=== PATIENT | male | born 1945 | race Caucasian/White ===

== ENCOUNTER → 2017-08-12 13:54 | Outpatient (CLI) | payer MEDICARE ==
[2017-08-12 15:07] LABS: CREATININE - SERUM 2.2 mg/dL (0.6-1.3)
== END | disposition home or self-care (01) ==
LOC: D.CT 13:54
PROVIDERS: Family Medicine
DX: R94.39 Abnormal result of other cardiovascular function study (principal)

== ENCOUNTER 2018-08-12 10:51 | Inpatient (IN) | payer OTHER, MEDICARE ==
[~2018-08-12] VITALS: Ht 180.3 cm; Wt 121.8 kg
[2018-08-12] MEDS ORDERED: ELIQUIS5 MG PO (10:59)
[2018-08-12] MEDS ORDERED: ALDACTONE25 MG PO (10:59)
[2018-08-12] MEDS ORDERED: BETAPACE 120 M120 MG PO (11:00)
[2018-08-12] MEDS ORDERED: COZAAR100 MG PO (11:00)
[2018-08-12] MEDS ORDERED: NORVASC10 MG PO (11:00)
[2018-08-12] MEDS ORDERED: CYMBALTA30 MG PO (11:01)
[2018-08-12] MEDS ORDERED: TORSEMIDE20 MG PO (11:02)
[2018-08-12] MEDS ORDERED: FERROUS SULFAT325 MG PO (11:02)
[2018-08-12] MEDS ORDERED: OMEPRAZOLE20 M1 PO (11:03)
[2018-08-12] MEDS ORDERED: TRICOR145 MG PO (11:03)
[2018-08-12] MEDS ORDERED: FOLIC ACID1 MG PO (11:03)
[2018-08-12] MEDS ORDERED: CRESTOR40 MG PO (11:03)
[2018-08-12] MEDS ORDERED: NEURONTIN 300300 MG PO (11:04)
[2018-08-12] MEDS ORDERED: ULTRAM50 MG PO (11:05)
[2018-08-12] MEDS ORDERED: ASCORBIC ACID500 MG PO (11:06)
[2018-08-12] MEDS ORDERED: FLUTICASONE PRO16 GM NASAL (11:06)
[2018-08-12] MEDS ORDERED: NOVOLOG100 UNIT/1 SC (11:07)
[2018-08-12] MEDS ORDERED: LANTUS INSULIN10 ML SC (11:07)
[2018-08-12] MEDS ORDERED: VITAMIN D250000 UNIT PO (11:08)
[2018-08-12 11:30] VITALS: BP 148/72
[2018-08-12 11:47] LABS: BASOPHILS 0.1 % (0-2); EOSINOPHILS 0.7 % (0-7); HEMATOCRIT 39.6 % (42.0-54.0); HEMOGLOBIN 14.2 g/dL (13.5-17.5); IMMATURE GRANULOCYTES 0.1 % (0-5); LYMPHOCYTES 24.3 % (15-50); MCH 32.3 pg (26.0-34.0); MCHC 35.9 g/dL (31.0-37.0); MEAN PLATELET VOLUME 10.5 fL (7.4-10.4); MONOCYTES 6.8 % (2-11); PLATELET COUNT 213 10x3/uL (130-400); RDW 12.5 % (11.5-14.5); WBC 6.8 10x3/uL (4.8-10.8)
[2018-08-12 12:04] LABS: ALBUMIN 3.8 g/dL (3.4-5.0); ANION GAP 11.7 mmol/L (8-16); BILIRUBIN - TOTAL 0.37 mg/dL (0.2-1.3); CALCIUM 9.5 mg/dL (8.5-10.1); CARBON DIOXIDE 28.1 mmol/L (21.0-32.0); CREATININE - SERUM 1.9 mg/dL (0.6-1.3); POTASSIUM - SERUM 4.8 mmol/L (3.5-5.1); PROTEIN - SERUM 7.1 g/dL (6.4-8.2)
[2018-08-12 12:35] VITALS: BP 150/75
[2018-08-12 13:31] VITALS: BP 177/80
[2018-08-12 13:40] LABS: INR 1.04 (0.85-1.17); PROTIME 13.1 SECONDS (11.6-15.0)
--- NOTE | 2018-08-12 16:04 | NUR ---
NEW PAGTIENT ADMIT FROM ER VIA STRETCHER AND HOSPITAL PERSONNEL. PATIENT ACCOMPANIED BY MULTIPLE FAMILY MEMBERS. PATIENT IS STABLE AND VSS. PATIENT DENIES ANY NEEDS OR PAIN. ADMISSION HISTORY AND ASSESSMENT COMPLETED. WILL CONTINUE WITH PLAN OF CARE. SR UP X 2 BED IN LOW POSTION AND CALL LIGHT IN REACH.
[2018-08-12 16:21] VITALS: BP 171/80; BMI 37.4
[2018-08-12 17:05] LABS: CHOL - HDL RATIO 5.3 ratio (2.3-4.9); LDL-HDL RATIO 2.4 ratio (1.5-3.5)
[2018-08-12 18:00] VITALS: BP 169/80
--- NOTE | 2018-08-12 18:20 | NUR ---
PATIENT LAYING IN BED SURROUNDED BY FAMILY MEMBERS. PATIENT IS STABLE AND VSS PATIENT DENIES ANY NEEDS OR PAIN. INFORMED PATIENT OF NEW NPO ORDER UNTIL CLEARED BY SPECCH. PATIENT AND VERBALIZED UNDERSTANDING. SIGN PLACED ON DOOR. WILL CONTINUE TO MONITOR.
[2018-08-12 20:00] VITALS: BP 175/73
[2018-08-13] VITALS: BP 160/62
[2018-08-13 04:00] VITALS: BP 162/76
[2018-08-13 05:04] LABS: BASOPHILS 0.2 % (0-2); EOSINOPHILS 1.2 % (0-7); HEMATOCRIT 37.5 % (42.0-54.0); HEMOGLOBIN 13.3 g/dL (13.5-17.5); IMMATURE GRANULOCYTES 0.2 % (0-5); LYMPHOCYTES 28.6 % (15-50); MCH 32.2 pg (26.0-34.0); MCHC 35.5 g/dL (31.0-37.0); MCV 90.8 fL (80.0-100.0); MEAN PLATELET VOLUME 10.3 fL (7.4-10.4); MONOCYTES 9.4 % (2-11); NEUTROPHILS 60.4 % (40-80); PLATELET COUNT 180 10x3/uL (130-400); RBC 4.13 10x6/uL (4.20-6.10); RDW 12.4 % (11.5-14.5); WBC 6.5 10x3/uL (4.8-10.8)
[2018-08-13 05:18] LABS: ANION GAP 11.9 mmol/L (8-16); CARBON DIOXIDE 27.4 mmol/L (21.0-32.0); CREATININE - SERUM 1.7 mg/dL (0.6-1.3); POTASSIUM - SERUM 4.3 mmol/L (3.5-5.1)
--- NOTE | 2018-08-13 07:10 | NUR ---
REPORT RECEIVED FROM DIALYSIS RN AND PATIENT CARE ASSUMED. PATIENT LAYING IN BED ON BACK WITH EYES CLOSED AND BREATHING EVENLY. VSS AND PATEINT IS STABLE. PATIENT REMAINS NPO PENDING SPEECH EVAL. WILL CONTINUE WITH PLAN OF CARE. SR UP X 2 BED IN LOW POSTITION AND CALL LIGHT IN REACH.
[2018-08-13 08:34] LABS: APPEARANCE CLEAR (CLEAR); COLOR YELLOW (YELLOW); GLUCOSE 1000 mg/dL (NEGATIVE); KETONE NEGATIVE (NEGATIVE); NITRITE NEGATIVE (NEGATIVE); PROTEIN 2+ mg/dL (NEGATIVE); SPECIFIC GRAVITY 1.015 (1.005-1.020)
[2018-08-13 08:35] LABS: BACTERIA FEW /hpf (NONE SEEN); BILIRUBIN NEGATIVE (NEGATIVE); EPITHELIAL CELLS OCC /hpf (0-5); MUCUS <1+ /lpf (NONE SEEN); RED CELLS - URINE 0-5 /hpf (0-5); UROBILINOGEN NORMAL (NORMAL); WHITE CELLS - URINE RARE /hpf (0-5)
[2018-08-13 08:37] LABS: GRANULAR CAST OCC /lpf (NONE SEEN); HYALINE CAST RARE /lpf (NONE SEEN)
--- NOTE | 2018-08-13 08:53 | MORECARE ---
CASE MANAGEMENT DISCHARGE SUMMARY PATIENT: CHOLO BARRAZA UNIT: [id number] ADM DATE: 08/13/18 AGE: 73 : 46 SEX: M ROOM/BED: D.2103 AUTHOR: DIAZ ZAVALA PHYSICIAN: REFERRING PHYSICIAN: WENDY BOSE MD DATE OF SERVICE: 08/13/18 Discharge Plan Patient Name: CHOLO BARRAZA Facility: [facility]:[place] : 1945 Planned Disposition: [place] facility Anticipated Discharge Date: Discharge Date: Expected LOS: Initial Reviewer: [email or web address] Initial Review Date: 08/12/2018 Generated: 08/13/18 9:52 am Patient Name: CHOLO BARRAZA Page 77944 at 0853 All edits/amendments must be made on the electronic document DICTATION DATE: 08/13/1852 DREDGE LEVER OPERATOR: LORENZA 08/13/18 0852 RPT#: [id number] DC DATE: STATUS: ADM IN [facility] [address] [place] [address] END OF REPORT
--- NOTE | 2018-08-13 08:59 | MORECARE ---
CASE MANAGEMENT DISCHARGE SUMMARY PATIENT: CHOLO BARRAZA UNIT: [id number] ADM DATE: 08/13/18 AGE: 73 : 46 SEX: M ROOM/BED: D.2103 AUTHOR: DIAZ ZAVALA PHYSICIAN: REFERRING PHYSICIAN: WENDY BOSE MD DATE OF SERVICE: 08/13/18 Discharge Plan Patient Name: CHOLO BARRAZA Facility: [facility]:[place] : 1945 Planned Disposition: [place] facility Anticipated Discharge Date: Discharge Date: Expected LOS: Initial Reviewer: [email or web address] Initial Review Date: 08/12/2018 Generated: 08/13/18 9:59 am DCPIA - Discharge Planning Initial Assessment Updated by [email or web address]: Jarad Ceron on 08/13/18 8:54 am * Is the patient Alert and Oriented? Yes * How many steps to enter\exit or inside your home? * PCP DR. OBRIEN * Pharmacy [place] [facility] * Preadmission Environment Home with Family * ADLs Independent * Equipment Rolling Walker * Other Equipment WALKER WITH SEAT PROVIDER- [employer] * List name and contact numbers for known caregivers / representatives who currently or will assist patient after discharge: CHER BARRAZA, SPOUSE, * Verbal permission to speak to the caregivers and representatives has been obtained from the patient. N/A * Community resources currently utilized None * Please name any agencies selected above. NONE * Additional services required to return to the preadmission environment? No * Can the patient safely return to the preadmission environment? Yes * Has this patient been hospitalized within the prior 30 days at any hospital? No Last DP export: 08/13/18 7:52 am Patient Name: CHOLO BARRAZA Page 38093 at 0859 All edits/amendments must be made on the electronic document DICTATION DATE: 08/13/18857 RUSTIC FENCE BUILDER: LORENZA 08/13/1858 RPT#: [id number] DC DATE: STATUS: ADM IN [facility] [address] [place] [address] END OF REPORT
--- NOTE | 2018-08-13 09:00 | NUR ---
PATIENT SITTING UP IN BS CHAIR AWAKE, ALERT AND ORIENTED X 4. PATIENT DNIES ANY NEEDS OR PAIN. SPEECH THERAPY AT BS. CALL LIGHT IN REACH.
--- NOTE | 2018-08-13 09:06 | MORECARE ---
CASE MANAGEMENT DISCHARGE SUMMARY PATIENT: CHOLO BARRAZA UNIT: [id number] ADM DATE: 08/13/18 AGE: 73 : 46 SEX: M ROOM/BED: D.2103 AUTHOR: DIAZ ZAVALA PHYSICIAN: REFERRING PHYSICIAN: WENDY BOSE MD DATE OF SERVICE: 08/13/18 Discharge Plan Patient Name: CHOLO BARRAZA Facility: [facility]:[place] : 1945 Planned Disposition: VA facility Anticipated Discharge Date: Discharge Date: Expected LOS: Initial Reviewer: [email or web address] Initial Review Date: 08/12/2018 Generated: 08/13/18 10:05 am Comments DCP- Discharge Planning Updated by [email or web address]: Jarad Ceron on 08/13/18 8:[address] Patient Name: CHOLO BARRAZA Admission Status: ER Accout number: [id number] Admission Date: 08-13-2018 : 1945 Admission Diagnosis: Attending: WENDY BOSE Current LOS: 1 Anticipated DC Date: Planned Disposition: [place] facility Primary Insurance: [facility] PLANNED EXTERNAL PROVIDER: [facility] Discharge Planning Comments: CM MET WITH PT IN ROOM TO DISCUSS DISCHARGE PLANNING AND NEEDS. PT REPORTS LIVING AT HOME INDEPENDENTLY WITH SPOUSE. PT HAS WALKER WITH SEAT FROM THE [facility]. PT HAS NO OUTSIDE SERVICES ASSISTING IN THE HOME. CM DISCUSSED AVAILABILITY OF HOME HEALTH, REHAB SERVICES AND MEDICAL EQUIPMENT. PT STATES IF HE NEEDS REHAB, HE WANTS REHAB AT [facility] HE ALREADY GOES THERE. PT PLANS TO DISCHARGE HOME IF NOT TRANSFERRED TO THE [facility] [place]. PT STATES THE NURSE IN THE ER WAS SUPPOSED TO CALL LAST NIGHT. PT REPORTS HIS WILL PICK HIM UP FOR DISCHARGE HOME. PT DOES WANT TO TRANSFER TO THE [place] HOSPITAL. CM CALLED [facility], , SPOKE TO [place] EXPEDITOR MELODY WHO INFORMED CM THAT NO PRIOR CALL HAD BEEN RECEIVED REGARDING PT'S ADMISSION TO THE HOSPITAL. CM PLACED PT ON THE [place] TRANSFER LIST. PT IS ON THE [place] TRANSFER LIST. PT STATES THAT IF HE COMPLETES TREATMENT HERE WITHOUT A VA BED COMING AVAILABLE, PT WANTS TO DISCHARGE HOME WITH SPOUSE AND OUTPATIENT REHAB AT [facility]. CM TO CONTINUE TO FOLLOW AND ASSIST NEEDED. Personnel Records Clerk: Jarad Ceron DCPIA - Discharge Planning Initial Assessment Updated by [email or web address]: Jarad Ceron on 08/13/18 8:54 am * Is the patient Alert and Oriented? Yes * How many steps to enter\exit or inside your home? * PCP DR. OBRIEN * [facility]acy [place] [facility] * Preadmission Environment Home with Family * ADLs Independent * Equipment Rolling Walker * Other Equipment WALKER WITH SEAT PROVIDER- [employer] * List name and contact numbers for known caregivers / representatives who currently or will assist patient after discharge: CHER BARRAZA, SPOUSE, * Verbal permission to speak to the caregivers and representatives has been obtained from the patient. N/A * Community resources currently utilized None * Please name any agencies selected above. NONE * Additional services required to return to the preadmission environment? No * Can the patient safely return to the preadmission environment? Yes * Has this patient been hospitalized within the prior 30 days at any hospital? No Last DP export: 08/13/18 7:59 am Patient Name: CHOLO BARRAZA Page 52591 at 0906 All edits/amendments must be made on the electronic document DICTATION DATE: 08/13/18904 ADMISSIONS RN: LORENZA 08/13/18904 RPT#: [id number] DC DATE: STATUS: ADM IN [facility] [address] [place] [address] END OF REPORT
[2018-08-13 09:18] VITALS: BP 175/72
[2018-08-13 09:33] VITALS: Ht 180.3 cm; Wt 121.8 kg
--- NOTE | 2018-08-13 13:00 | NUR ---
PATIENT IS SITTING UP IN BED WATCHING TV AND VISITING WITH FAMILY. PATIENT IS STABLE AND VSS. PATIENT DENIES ANY NEEDS OR PAIN. WILL CONTINUE TO MONITOR.
[2018-08-13 13:12] VITALS: BP 166/74
[2018-08-13 17:11] VITALS: BP 162/79
--- NOTE | 2018-08-13 17:37 | NUR ---
PATIENT IS STABLE AND UNCHANGED.
--- NOTE | 2018-08-13 17:49 | MORECARE ---
CASE MANAGEMENT DISCHARGE SUMMARY PATIENT: CHOLO BARRAZA UNIT: [id number] ADM DATE: 08/13/18 AGE: 73 : 46 SEX: M ROOM/BED: D.2103 AUTHOR: DIAZ ZAVALA PHYSICIAN: REFERRING PHYSICIAN: WENDY BOSE MD DATE OF SERVICE: 08/13/18 Discharge Plan Patient Name: CHOLO BARRAZA Facility: [facility]:[place] : 1945 Planned Disposition: Home with Home Health Anticipated Discharge Date: Discharge Date: Expected LOS: Initial Reviewer: [email or web address] Initial Review Date: 08/12/2018 Generated: 08/13/18 6:49 pm Comments DCP- Discharge Planning Updated by [email or web address]: Jarad Ceron on 08/13/18 4:[address] Patient Name: CHOLO BARRAZA Encounter No: [id number] : 1945 Primary Insurance: [employer] Anticipated DC Date: Planned Disposition: Home with Home Health External Planned Provider: [facility] DCP follow-up note: CM RECEIVED ORDER FOR INPATIENT REHAB PRESCREENING. CM MET WITH PT AND SPOUSE IN ROOM. PT PROVIDED PERMISSION TO DISCUSS CARE AND DISCHARGE PLANNING WITH SPOUSE. CM DISCUSSED REHAB OPTIONS, PROVIDERS AND LOCATIONS. PT DOES NOT WANT TO STAY FOR REHAB AT [facility]. PT DOES NOT WANT TRANSFERRED TO [place] INPATIENT REHAB OR CUSTODIAL REHAB. PT REQUESTS FOR [place] HOME HEALTH AND VA PERSONAL CARE BE ARRANGED FOR HIM TO DISCHARGE HOME. CM EXPLAINED PROCESS AND INFORMED PT AND SPOUSE THE REQUESTED ARRANGEMENT WILL TAKE AND UNDETERMINED AMOUNT OF TIME AND THE [facility] MAY OR MAY NOT AGREE WITH THE NEEDS AND MAY OR MAY NOT ARRANGE THE SERVICES. CM FURTHER EXPLAINED THAT CM MAY REQUEST THE SERVICES FROM THE [facility], BUT THAT CM DOES NOT HAVE CONTROL OVER WHAT THE [facility] ADMINISTRATION WILL OR WILL NOT PROVIDE. PT AND SPOUSE REPORT UNDERSTANDING. PT AND SPOUSE EXPECT THAT HE WILL REMAIN IN THE HOSPITAL UNTIL THE VA MAKES ARRANGEMENTS FOR PT'S DISCHARGE HOME. CM TO CONTACT [facility] AND REQUEST HOME HEALTH AND HOME PERSONAL CARE FROM THE [place] FOR PT TO DISCHARGE HOME. ABEL Chiang DCP- Discharge Planning Updated by [email or web address]: Jarad Ceron on 08/13/18 8:[address] Patient Name: CHOLO BARRAZA Admission Status: ER Accout number: [id number] Admission Date: 08-13-2018 : 1945 Admission Diagnosis: Attending: WENDY BOSE Current LOS: 1 Anticipated DC Date: Planned Disposition: [place] facility Primary Insurance: [facility] PLANNED EXTERNAL PROVIDER: [facility] Discharge Planning Comments: CM MET WITH PT IN ROOM TO DISCUSS DISCHARGE PLANNING AND NEEDS. PT REPORTS LIVING AT HOME INDEPENDENTLY WITH SPOUSE. PT HAS WALKER WITH SEAT FROM THE [facility]. PT HAS NO OUTSIDE SERVICES ASSISTING IN THE HOME. CM DISCUSSED AVAILABILITY OF HOME HEALTH, REHAB SERVICES AND MEDICAL EQUIPMENT. PT STATES IF HE NEEDS REHAB, HE WANTS REHAB AT [facility] HE ALREADY GOES THERE. PT PLANS TO DISCHARGE HOME IF NOT TRANSFERRED TO THE [facility] IN [place]. PT STATES THE NURSE IN THE ER WAS SUPPOSED TO CALL LAST NIGHT. PT REPORTS HIS WILL PICK HIM UP FOR DISCHARGE HOME. PT DOES WANT TO TRANSFER TO THE [place] HOSPITAL. CM CALLED [facility], , SPOKE TO [place] EXPEDITOR MELODY WHO INFORMED CM THAT NO PRIOR CALL HAD BEEN RECEIVED REGARDING PT'S ADMISSION TO THE HOSPITAL. CM PLACED PT ON THE [place] TRANSFER LIST. PT IS ON THE [place] TRANSFER LIST. PT STATES THAT IF HE COMPLETES TREATMENT HERE WITHOUT A [place] BED COMING AVAILABLE, PT WANTS TO DISCHARGE HOME WITH SPOUSE AND OUTPATIENT REHAB AT [facility]. CM TO CONTINUE TO FOLLOW AND ASSIST NEEDED. Credit Collection Specialist: Jarad Ceron DCPIA - Discharge Planning Initial Assessment Updated by [email or web address]: Jarad Ceron on 08/13/18 8:54 am * Is the patient Alert and Oriented? Yes * How many steps to enter\exit or inside your home? * PCP DR. OBRIEN * Pharmacy [place] [facility] * Preadmission Environment Home with Family * ADLs Independent * Equipment Rolling Walker * Other Equipment WALKER WITH SEAT PROVIDER- [facility] * List name and contact numbers for known caregivers / representatives who currently or will assist patient after discharge: CHER BARRAZA, SPOUSE, * Verbal permission to speak to the caregivers and representatives has been obtained from the patient. N/A * Community resources currently utilized None * Please name any agencies selected above. NONE * Additional services required to return to the preadmission environment? No * Can the patient safely return to the preadmission environment? Yes * Has this patient been hospitalized within the prior 30 days at any hospital? No Last DP export: 08/13/18 8:05 am Patient Name: CHOLO BARRAZA Page 02003 at 1742 All edits/amendments must be made on the electronic document DICTATION DATE: 08/13/181747 HOME SERVICE CONSULTANT: LORENZA 08/13/181747 RPT#: [id number] DC DATE: STATUS: ADM IN [facility] [address] [place] [address] END OF REPORT
--- NOTE | 2018-08-13 20:00 | NUR ---
ALERT AND ORIENTIATED RESTING IN BED, SLIGHT RIGHT SIDED FACIAL DROOPING NOTED ALSO RIGHT HAND EQUIPMENT SALES SPECIALIST SLIGHTLY WEAKER THAN LEFT AND RIGHT LEG SLIGHTLY WEAKER SHYANNE RIGHT, SEE SHIFT ASSESSMENT, DENIES PAIN OR NEEDS, CALL LIGHT IN REACH
[2018-08-13 20:22] VITALS: BP 144/60
--- NOTE | 2018-08-13 21:19 | NUR ---
Rehab Note- Acute Inpatient Rehab prescreen order received. The patient has VA Benefits with secondary insurance of [employer]. The patient wishs to continue his VA benefits at this time and discharge home per speaking with MIGEL Obrien. Thank you for this referral! Jesica Hensley RN Clinical Liaison, [facility]
--- NOTE | 2018-08-13 22:45 | NUR ---
OT NOTE: PT COMPLETED BED MOB WITH MIN A. PT COMPLETED EOB SITTING BALANCE AXS TO INCREASE CORE STRENGTH. PT COMPLETED SIT TO STANDS WITH MIN A/CGA. PT COMPLETED BUE AROM EXS. THANK YOU, SHIVA LANCASTER
[2018-08-14 00:06] VITALS: BP 145/64
[2018-08-14 04:27] VITALS: BP 131/65
[2018-08-14 05:02] LABS: BASOPHILS 0.1 % (0-2); EOSINOPHILS 0.9 % (0-7); HEMATOCRIT 39.1 % (42.0-54.0); HEMOGLOBIN 13.9 g/dL (13.5-17.5); IMMATURE GRANULOCYTES 0.3 % (0-5); LYMPHOCYTES 21.2 % (15-50); MCHC 35.5 g/dL (31.0-37.0); MCV 89.9 fL (80.0-100.0); MEAN PLATELET VOLUME 10.5 fL (7.4-10.4); MONOCYTES 8.8 % (2-11); NEUTROPHILS 68.7 % (40-80); RBC 4.35 10x6/uL (4.20-6.10); RDW 12.2 % (11.5-14.5); WBC 7.7 10x3/uL (4.8-10.8)
[2018-08-14 05:04] LABS: PLATELET COUNT 224 10x3/uL (130-400)
[2018-08-14 05:21] LABS: ANION GAP 13.3 mmol/L (8-16); CALCIUM 9.1 mg/dL (8.5-10.1); CARBON DIOXIDE 25.1 mmol/L (21.0-32.0); CREATININE - SERUM 1.5 mg/dL (0.6-1.3); POTASSIUM - SERUM 4.4 mmol/L (3.5-5.1)
[2018-08-14 07:41] VITALS: BP 168/72
--- NOTE | 2018-08-14 07:45 | NUR ---
A/A/OX4. DENIES ANY PAIN OR DISCOMFORT AND NO REQUESTS VOICED. SOME SLIGHT RIGHT SIDED WEAKNESS NOTED ON NEURO CHECK. ASSESSMENT COMPLETED AND WILL CONTINUE POC.
[2018-08-14 12:03] VITALS: BP 162/78
--- NOTE | 2018-08-14 13:25 | NUR ---
I have reviewed this patient and I concur with the Shift Assessment completed by the Licensed Practical Nurse today this shift.
--- NOTE | 2018-08-14 14:24 | MORECARE ---
CASE MANAGEMENT DISCHARGE SUMMARY PATIENT: CHOLO BARRAZA UNIT: [id number] ADM DATE: 08/13/18 AGE: 73 : 46 SEX: M ROOM/BED: D.2103 AUTHOR: DIAZ ZAVALA PHYSICIAN: REFERRING PHYSICIAN: WENDY BOSE MD DATE OF SERVICE: 08/14/18 Discharge Plan Patient Name: CHOLO BARRAZA Facility: [facility]:[place] : 1945 Planned Disposition: Home with Home Health Anticipated Discharge Date: Discharge Date: Expected LOS: Initial Reviewer: [email or web address] Initial Review Date: 08/12/2018 Generated: 08/14/18 3:24 pm Comments DCP- Discharge Planning Updated by [email or web address]: Sol Benavidez on 08/14/18 1:[address] Patient Name: CHOLO BARRAZA Admission Status: ER Accout number: [id number] Admission Date: 08-13-2018 : 1945 Admission Diagnosis:CEREBRAL INFARCTION, UNSPECIFIED Attending: WENDY BOSE Current LOS: 1 Anticipated DC Date: Planned Disposition: Home with Home Health Primary Insurance: [facility] Discharge Planning Comments: SPOKE TO PT AND ABOUT HH AND THAT VA COULD TAKE WEEKS TO GET IN. PT DECIDED TO GO WITH [facility]. LASHAY SIGNED AT 1350. PT HAS WALKER AT HOME AND DENIES ANY OTHER NEEDS. PT STATES HOME IS A SAFE DC PLAN. CM FAXED AND CALLED HH WITH NEW ADMIT INFORMATION. IMM SIGNED AT 1350 Chef Kitchen Manager: Sol Benavidez DCP- Discharge Planning Updated by [email or web address]: Jarad Ceron on 08/13/18 4:[address] Patient Name: CHOLO BARRAZA Encounter No: [id number] : 1945 Primary Insurance: [facility] [employer] Anticipated DC Date: Planned Disposition: Home with Home Health External Planned Provider: [facility] DCP follow-up note: CM RECEIVED ORDER FOR INPATIENT REHAB PRESCREENING. CM MET WITH PT AND SPOUSE IN ROOM. PT PROVIDED PERMISSION TO DISCUSS CARE AND DISCHARGE PLANNING WITH SPOUSE. CM DISCUSSED REHAB OPTIONS, PROVIDERS AND LOCATIONS. PT DOES NOT WANT TO STAY FOR REHAB AT [facility]. PT DOES NOT WANT TRANSFERRED TO [facility] INPATIENT REHAB OR NURSING HOME REHAB. PT REQUESTS FOR [place] HOME HEALTH AND VA PERSONAL CARE BE ARRANGED FOR HIM TO DISCHARGE HOME. CM EXPLAINED PROCESS AND INFORMED PT AND SPOUSE THE REQUESTED ARRANGEMENT WILL TAKE AND UNDETERMINED AMOUNT OF TIME AND THE [facility] MAY OR MAY NOT AGREE WITH THE NEEDS AND MAY OR MAY NOT ARRANGE THE SERVICES. CM FURTHER EXPLAINED THAT CM MAY REQUEST THE SERVICES FROM THE [facility], BUT THAT CM DOES NOT HAVE CONTROL OVER WHAT THE [facility] ADMINISTRATION WILL OR WILL NOT PROVIDE. PT AND SPOUSE REPORT UNDERSTANDING. PT AND SPOUSE EXPECT THAT HE WILL REMAIN IN THE HOSPITAL UNTIL THE [place] MAKES ARRANGEMENTS FOR PT'S DISCHARGE HOME. CM TO CONTACT [facility] AND REQUEST HOME HEALTH AND HOME PERSONAL CARE FROM THE [place] FOR PT TO DISCHARGE HOME. Jarad Ceron, CASE MANAGEMENT DCP- Discharge Planning Updated by [email or web address]: Jarad Ceron on 08/13/18 8:[address] Patient Name: CHOLO BARRAZA Admission Status: ER Accout number: [id number] Admission Date: 08-13-2018 : 1945 Admission Diagnosis: Attending: WENDY BOSE Current LOS: 1 Anticipated DC Date: Planned Disposition: [place] facility Primary Insurance: [facility] PLANNED EXTERNAL PROVIDER: [facility] Discharge Planning Comments: CM MET WITH PT IN ROOM TO DISCUSS DISCHARGE PLANNING AND NEEDS. PT REPORTS LIVING AT HOME INDEPENDENTLY WITH SPOUSE. PT HAS WALKER WITH SEAT FROM THE [facility]. PT HAS NO OUTSIDE SERVICES ASSISTING IN THE HOME. CM DISCUSSED AVAILABILITY OF HOME HEALTH, REHAB SERVICES AND MEDICAL EQUIPMENT. PT STATES IF HE NEEDS REHAB, HE WANTS REHAB AT [facility] HE ALREADY GOES THERE. PT PLANS TO DISCHARGE HOME IF NOT TRANSFERRED TO THE [facility] IN [place]. PT STATES THE NURSE IN THE ER WAS SUPPOSED TO CALL LAST NIGHT. PT REPORTS HIS WILL PICK HIM UP FOR DISCHARGE HOME. PT DOES WANT TO TRANSFER TO THE [facility] HOSPITAL. CM CALLED [facility], , SPOKE TO [place] EXPEDITOR MELODY WHO INFORMED CM THAT NO PRIOR CALL HAD BEEN RECEIVED REGARDING PT'S ADMISSION TO THE HOSPITAL. CM PLACED PT ON THE [place] TRANSFER LIST. PT IS ON THE [place] TRANSFER LIST. PT STATES THAT IF HE COMPLETES TREATMENT HERE WITHOUT A VA BED COMING AVAILABLE, PT WANTS TO DISCHARGE HOME WITH SPOUSE AND OUTPATIENT REHAB AT [facility]. CM TO CONTINUE TO FOLLOW AND ASSIST NEEDED. Chef Kitchen Manager: Jarad Ceron DCPIA - Discharge Planning Initial Assessment Updated by [email or web address]: Jarad Ceron on 08/13/18 8:54 am * Is the patient Alert and Oriented? Yes * How many steps to enter\exit or inside your home? * PCP DR. OBRIEN * Pharmacy [place] [facility] * Preadmission Environment Home with Family * ADLs Independent * Equipment Rolling Walker * Other Equipment WALKER WITH SEAT PROVIDER- [employer] * List name and contact numbers for known caregivers / representatives who currently or will assist patient after discharge: CHER BARRAZA, SPOUSE, * Verbal permission to speak to the caregivers and representatives has been obtained from the patient. N/A * Community resources currently utilized None * Please name any agencies selected above. NONE * Additional services required to return to the preadmission environment? No * Can the patient safely return to the preadmission environment? Yes * Has this patient been hospitalized within the prior 30 days at any hospital? No Last DP export: 08/13/18 4:49 pm Patient Name: CHOLO BARRAZA Page 19294 at 1424 All edits/amendments must be made on the electronic document DICTATION DATE: 08/14/181422 SURVEYOR ROD HELPER: LORENZA 08/14/181422 RPT#: [id number] DC DATE: STATUS: ADM IN [facility] [address] [place] [address] END OF REPORT
--- NOTE | 2018-08-14 15:33 | NUR ---
DISCHARGE INSTRUCTIONS REVIEWED WITH PT AND HIS . VERBALIZES UNDERSTANDING AND HAS NOT QUESTIONS. IV DC'D WITH CATH TIP INTACT. SALES SPECIAL AGENT REMOVED.
--- NOTE | 2018-08-14 16:03 | NUR ---
LEFT FLOOR VIA W/C WITH ALL PERSONAL BELONGINGS AND LEFT FACILITY VIA PRIVATE VEHICLE WITH HIS .
--- NOTE | 2018-08-14 19:34 | MORECARE ---
CASE MANAGEMENT DISCHARGE SUMMARY PATIENT: CHOLO BARRAZA UNIT: [id number] ADM DATE: 08/13/18 AGE: 73 : 46 SEX: M ROOM/BED: D.2103 AUTHOR: DIAZ ZAVALA PHYSICIAN: REFERRING PHYSICIAN: WENDY BOSE MD DATE OF SERVICE: 08/14/18 Discharge Plan Patient Name: CHOLO BARRAZA Facility: [facility]:[place] : 1945 Planned Disposition: Home with Home Health Anticipated Discharge Date: Discharge Date: 08/14/2018 Expected LOS: Initial Reviewer: [id number] Initial Review Date: 08/12/2018 Generated: 08/14/18 8:34 pm Comments DCP- Discharge Planning Updated by [email or web address]: Sol Benavidez on 08/14/18 1:[address] Patient Name: CHOLO BARRAZA Admission Status: ER Accout number: [id number] Admission Date: 08-13-2018 : 1945 Admission Diagnosis:CEREBRAL INFARCTION, UNSPECIFIED Attending: WENDY BOSE Current LOS: 1 Anticipated DC Date: Planned Disposition: Home with Home Health Primary Insurance: [facility] [employer] Discharge Planning Comments: SPOKE TO PT AND ABOUT HH AND THAT MA COULD TAKE WEEKS TO GET IN. PT DECIDED TO GO WITH [facility] . LASHAY SIGNED AT 1350. PT HAS WALKER AT HOME AND DENIES ANY OTHER NEEDS. PT STATES HOME IS A SAFE DC PLAN. CM FAXED AND CALLED HH WITH NEW ADMIT INFORMATION. IMM SIGNED AT 1350 Flag Signalman: Sol Benavidez DCP- Discharge Planning Updated by [id number]: Jarad Ceron on 08/13/18 4:[address] Patient Name: CHOLO BARRAZA Encounter No: [id number] : 1945 Primary Insurance: [facility] Anticipated DC Date: Planned Disposition: Home with Home Health External Planned Provider: [facility] DCP follow-up note: CM RECEIVED ORDER FOR INPATIENT REHAB PRESCREENING. CM MET WITH PT AND SPOUSE IN ROOM. PT PROVIDED PERMISSION TO DISCUSS CARE AND DISCHARGE PLANNING WITH SPOUSE. CM DISCUSSED REHAB OPTIONS, PROVIDERS AND LOCATIONS. PT DOES NOT WANT TO STAY FOR REHAB AT [facility]. PT DOES NOT WANT TRANSFERRED TO [facility] OR [facility]. PT REQUESTS FOR [facility] HOME HEALTH AND [facility] PERSONAL CARE BE ARRANGED FOR HIM TO DISCHARGE HOME. CM EXPLAINED PROCESS AND INFORMED PT AND SPOUSE THE REQUESTED ARRANGEMENT WILL TAKE AND UNDETERMINED AMOUNT OF TIME AND THE [facility] MAY OR MAY NOT AGREE WITH THE NEEDS AND MAY OR MAY NOT ARRANGE THE SERVICES. CM FURTHER EXPLAINED THAT CM MAY REQUEST THE SERVICES FROM THE [facility], BUT THAT CM DOES NOT HAVE CONTROL OVER WHAT THE [facility] WILL OR WILL NOT PROVIDE. PT AND SPOUSE REPORT UNDERSTANDING. PT AND SPOUSE EXPECT THAT HE WILL REMAIN IN THE HOSPITAL UNTIL THE [facility] MAKES ARRANGEMENTS FOR PT'S DISCHARGE HOME. CM TO CONTACT [facility] AND REQUEST HOME HEALTH AND HOME PERSONAL CARE FROM THE [facility] FOR PT TO DISCHARGE HOME. Jarad Ceron, CASE MANAGEMENT DCP- Discharge Planning Updated by [email or web address]: Jarad Ceron on 08/13/18 8:[address] Patient Name: CHOLO BARRAZA Admission Status: ER Accout number: [id number] Admission Date: 08-13-2018 : 1945 Admission Diagnosis: Attending: WENDY BOSE Current LOS: 1 Anticipated DC Date: Planned Disposition: [place] facility Primary Insurance: [facility] PLANNED EXTERNAL PROVIDER: [facility] Discharge Planning Comments: CM MET WITH PT IN ROOM TO DISCUSS DISCHARGE PLANNING AND NEEDS. PT REPORTS LIVING AT HOME INDEPENDENTLY WITH SPOUSE. PT HAS WALKER WITH SEAT FROM THE [facility]. PT HAS NO OUTSIDE SERVICES ASSISTING IN THE HOME. CM DISCUSSED AVAILABILITY OF HOME HEALTH, REHAB SERVICES AND MEDICAL EQUIPMENT. PT STATES IF HE NEEDS REHAB, HE WANTS REHAB AT [facility] HE ALREADY GOES THERE. PT PLANS TO DISCHARGE HOME IF NOT TRANSFERRED TO THE [facility] IN [place]. PT STATES THE NURSE IN THE ER WAS SUPPOSED TO CALL LAST NIGHT. PT REPORTS HIS WILL PICK HIM UP FOR DISCHARGE HOME. PT DOES WANT TO TRANSFER TO THE [facility] HOSPITAL. CM CALLED [facility], , SPOKE TO [place] EXPEDITOR MELODY WHO INFORMED CM THAT NO PRIOR CALL HAD BEEN RECEIVED REGARDING PT'S ADMISSION TO THE HOSPITAL. CM PLACED PT ON THE [place] TRANSFER LIST. PT IS ON THE [place] TRANSFER LIST. PT STATES THAT IF HE COMPLETES TREATMENT HERE WITHOUT A VA BED COMING AVAILABLE, PT WANTS TO DISCHARGE HOME WITH SPOUSE AND OUTPATIENT REHAB AT [facility]. CM TO CONTINUE TO FOLLOW AND ASSIST NEEDED. Flag Signalman: Jarad Ceron DCPIA - Discharge Planning Initial Assessment Updated by [email or web address]: Jarad Ceron on 08/13/18 8:54 am * Is the patient Alert and Oriented? Yes * How many steps to enter\exit or inside your home? * PCP DR. OBRIEN * [facility]acy [facility] * Preadmission Environment Home with Family * ADLs Independent * Equipment Rolling Walker * Other Equipment WALKER WITH SEAT PROVIDER- [employer] * List name and contact numbers for known caregivers / representatives who currently or will assist patient after discharge: CHER BARRAZA, SPOUSE, * Verbal permission to speak to the caregivers and representatives has been obtained from the patient. N/A * Community resources currently utilized None * Please name any agencies selected above. NONE * Additional services required to return to the preadmission environment? No * Can the patient safely return to the preadmission environment? Yes * Has this patient been hospitalized within the prior 30 days at any hospital? No Last DP export: 08/14/18 1:24 pm Patient Name: CHOLO BARRAZA Page [id number] at 1934 All edits/amendments must be made on the electronic document DICTATION DATE: 08/14/181933 LIGHT INDUSTRIAL SUPERVISOR: LORENZA 08/14/181933 RPT#: [id number] DC DATE:08/14/18 STATUS: DIS IN [facility] [address] [place] [address] END OF REPORT
--- NOTE | 2018-08-16 08:02 | MORECARE ---
CASE MANAGEMENT DISCHARGE SUMMARY PATIENT: CHOLO BARRAZA UNIT: [id number] ADM DATE: 08/13/18 AGE: 73 : 46 SEX: M ROOM/BED: D.2103 AUTHOR: DIAZ ZAVALA PHYSICIAN: REFERRING PHYSICIAN: WENDY BOSE MD DATE OF SERVICE: 08/16/18 Discharge Plan Patient Name: CHOLO BARRAZA Facility: [facility] : 1945 Planned Disposition: Home with Home Health Anticipated Discharge Date: 08/14/18 Discharge Date: 08/14/2018 Expected LOS: 1 Initial Reviewer: [id number] Initial Review Date: 08/12/2018 Generated: 08/16/18 9:02 am Comments DCP- Discharge Planning Updated by [email or web address]: Sol Benavidez on 08/14/18 1:[address] Patient Name: CHOLO BARRAZA Admission Status: ER Accout number: [id number] Admission Date: 08-13-2018 : 1945 Admission Diagnosis:CEREBRAL INFARCTION, UNSPECIFIED Attending: WENDY BOSE Current LOS: 1 Anticipated DC Date: Planned Disposition: Home with Home Health Primary Insurance: [facility] Discharge Planning Comments: SPOKE TO PT AND ABOUT HH AND THAT [facility] COULD TAKE WEEKS TO GET IN. PT DECIDED TO GO WITH [facility] . LASHAY SIGNED AT 1350. PT HAS WALKER AT HOME AND DENIES ANY OTHER NEEDS. PT STATES HOME IS A SAFE DC PLAN. CM FAXED AND CALLED HH WITH NEW ADMIT INFORMATION. IMM SIGNED AT 1350 Ladle Operator: Sol Benavidez DCP- Discharge Planning Updated by [id number]: Jarad Ceron on 08/13/18 4:[address] Patient Name: CHOLO BARRAZA Encounter No: [id number] : 1945 Primary Insurance: [employer] Anticipated DC Date: Planned Disposition: Home with Home Health External Planned Provider: [facility] DCP follow-up note: CM RECEIVED ORDER FOR INPATIENT REHAB PRESCREENING. CM MET WITH PT AND SPOUSE IN ROOM. PT PROVIDED PERMISSION TO DISCUSS CARE AND DISCHARGE PLANNING WITH SPOUSE. CM DISCUSSED REHAB OPTIONS, PROVIDERS AND LOCATIONS. PT DOES NOT WANT TO STAY FOR REHAB AT [place]. PT DOES NOT WANT TRANSFERRED TO [facility]AB OR [facility]. PT REQUESTS FOR NE HOME HEALTH AND NE PERSONAL CARE BE ARRANGED FOR HIM TO DISCHARGE HOME. CM EXPLAINED PROCESS AND INFORMED PT AND SPOUSE THE REQUESTED ARRANGEMENT WILL TAKE AND UNDETERMINED AMOUNT OF TIME AND THE [facility] MAY OR MAY NOT AGREE WITH THE NEEDS AND MAY OR MAY NOT ARRANGE THE SERVICES. CM FURTHER EXPLAINED THAT CM MAY REQUEST THE SERVICES FROM THE [facility], BUT THAT CM DOES NOT HAVE CONTROL OVER WHAT THE [facility] WILL OR WILL NOT PROVIDE. PT AND SPOUSE REPORT UNDERSTANDING. PT AND SPOUSE EXPECT THAT HE WILL REMAIN IN THE HOSPITAL UNTIL THE [facility] MAKES ARRANGEMENTS FOR PT'S DISCHARGE HOME. CM TO CONTACT [facility] AND REQUEST HOME HEALTH AND HOME PERSONAL CARE FROM THE [facility] FOR PT TO DISCHARGE HOME. Jarad Ceron, CASE MANAGEMENT DCP- Discharge Planning Updated by [id number]: Jarad Ceron on 08/13/18 8:[address] Patient Name: CHOLO BARRAZA Admission Status: ER Accout number: [id number] Admission Date: 08-13-2018 : 1945 Admission Diagnosis: Attending: WENDY BOSE Current LOS: 1 Anticipated DC Date: Planned Disposition: [place] facility Primary Insurance: [facility] PLANNED EXTERNAL PROVIDER: [facility] Discharge Planning Comments: CM MET WITH PT IN ROOM TO DISCUSS DISCHARGE PLANNING AND NEEDS. PT REPORTS LIVING AT HOME INDEPENDENTLY WITH SPOUSE. PT HAS WALKER WITH SEAT FROM THE [facility]. PT HAS NO OUTSIDE SERVICES ASSISTING IN THE HOME. CM DISCUSSED AVAILABILITY OF HOME HEALTH, REHAB SERVICES AND MEDICAL EQUIPMENT. PT STATES IF HE NEEDS REHAB, HE WANTS REHAB AT [facility] HE ALREADY GOES THERE. PT PLANS TO DISCHARGE HOME IF NOT TRANSFERRED TO THE [facility]OS[facility] IN [place]. PT STATES THE NURSE IN THE ER WAS SUPPOSED TO CALL LAST NIGHT. PT REPORTS HIS WILL PICK HIM UP FOR DISCHARGE HOME. PT DOES WANT TO TRANSFER TO THE [facility] HOSPITAL. CM CALLED [facility], , SPOKE TO [place] EXPEDITOR MELODY WHO INFORMED CM THAT NO PRIOR CALL HAD BEEN RECEIVED REGARDING PT'S ADMISSION TO THE HOSPITAL. CM PLACED PT ON THE [facility] TRANSFER LIST. PT IS ON THE NE TRANSFER LIST. PT STATES THAT IF HE COMPLETES TREATMENT HERE WITHOUT A VA BED COMING AVAILABLE, PT WANTS TO DISCHARGE HOME WITH SPOUSE AND OUTPATIENT REHAB AT [facility]. CM TO CONTINUE TO FOLLOW AND ASSIST NEEDED. Ladle Operator: Jarad Ceron DCPIA - Discharge Planning Initial Assessment Updated by [email or web address]: Jarad Ceron on 08/13/18 8:54 am * Is the patient Alert and Oriented? Yes * How many steps to enter\exit or inside your home? * PCP DR. OBRIEN * [facility]acy [facility] * Preadmission Environment Home with Family * ADLs Independent * Equipment Rolling Walker * Other Equipment WALKER WITH SEAT PROVIDER- [employer] * List name and contact numbers for known caregivers / representatives who currently or will assist patient after discharge: CEHR BARRAZA, SPOUSE, * Verbal permission to speak to the caregivers and representatives has been obtained from the patient. N/A * Community resources currently utilized None * Please name any agencies selected above. NONE * Additional services required to return to the preadmission environment? No * Can the patient safely return to the preadmission environment? Yes * Has this patient been hospitalized within the prior 30 days at any hospital? No Last DP export: 08/14/18 6:34 pm Patient Name: CHOLO BARRAZA Page 54534 at 0802 All edits/amendments must be made on the electronic document DICTATION DATE: 08/16/18801 AUTOCAD: LORENZA 08/16/18801 RPT#: [id number] DC DATE:08/14/18 STATUS: DIS IN [facility] [address] [place] [address] END OF REPORT
--- NOTE | 2018-08-16 09:55 | EC ---
PATIENT:CHOLO BARRAZA DATE OF SERVICE: 08/13/18 SEX: M MEDICAL RECORD: [id number] DATE OF : [birth year] LOCATION:D.M2 D.210 AGE OF PATIENT: 73 ADMISSION DATE: 08/13/18 REFERRING PHYSICIAN: INTERPRETING PHYSICIAN: ADRIANA MUÑIZ MD ECHOCARDIOGRAM REPORT ECHO CHARGES 4 ECHO COMPLETE Date: 08/13/18 CLINICAL DIAGNOSIS: ECHOCARDIOGRAPHIC MEASUREMENTS (adult normal given) AC root (d.<3.7cm) 3.3 cm LV Septum d (<1.2 cm> 1.2 cm Valve Excursion 2.1 cm LV Septum (systole) 1.8 cm Left Atria (s.<4.0cm> 4.3 cm LVPW d(<1.2cm) 1.3 cm RV (d.<2.3cm) 2.8 cm LVPW (sytole) 1.9 cm LV diastole(<5.6CM) 5.8 cm MV E-F(>70mm/sec) 1.9 cm LV systole 3.6 cm LVOT Diameter 1.8 cm MV exc.(>10mm) cm Est.ejection fraction (50-75%) % DOPPLER: LVIT cm/sec A 87.0 cm/sec E 58.0 cm/sec LA cm/sec RVSP 30.0 mmHg LVOT 120 cm/sec AOP1/2T m/s Asc. Ao 130 cm/sec RVOT 59.0 cm/sec RA cm/sec PA 104 cm/sec AV Gradient Peak 6.8 mmHg AV Mean 3.3 mmHg AV Area 1.8 cm MV Gradient Peak 3.8 mmHg MV Mean 0.98 mmHg MV Area cm COMMENTS: Clipper Counters: 1 STELLA MARIEOE Supervisor Machining: 2 Dr. Ruiz TAPE# PACS Pericardial Effusion N DATE OF SERVICE: Adequate 2D, color flow, spectral Doppler, and M-Mode Borderline LVH. LV internal dimension is normal. Wall motion is normal. EF is greater than or equal to 55%. Aortic valve is tricuspid. There is no evidence of stenosis on Doppler interrogation. Left atrium is minimally dilated at 4.3 cm. Mitral valve shows no prolapse. Trace MR. Right-sided chamber is grossly normal. Trace TR. ECHOCARDIOGRAM REPORT [id number] CHOLO BARRAZA TRANSINT:[id number] Voice Confirmation ID: [id number] DOCUMENT ID: [id number] ADRIANA MUÑIZ MD at 0955 CC: [id number] DICTATION DATE: 08/13/18 1128 HIDE TANNER: 08/13/18 1332 DIS IN 08/14/18 [place] [id number] [place] [id number]
--- NOTE | 2018-08-16 16:57 | MORECARE ---
CASE MANAGEMENT DISCHARGE SUMMARY PATIENT: CHOLO BARRAZA UNIT: [id number] ADM DATE: 08/13/18 AGE: 73 : [birth year] SEX: M ROOM/BED: D.2103 AUTHOR: DIAZ ZAVALA PHYSICIAN: REFERRING PHYSICIAN: WENDY BOSE MD DATE OF SERVICE: 08/16/18 Discharge Plan Patient Name: CHOLO BARRAZA Facility: [facility]:[place] : 1945 Planned Disposition: Home with Home Health Anticipated Discharge Date: 08/14/18 Discharge Date: 08/14/2018 Expected LOS: 1 Initial Reviewer: [email or web address] Initial Review Date: 08/12/2018 Generated: 08/16/18 5:56 pm Comments DCP- Discharge Planning Updated by [email or web address]: Jarad Ceron on 08/16/18 3:[address] Patient Name: COHLO BARRAZA Encounter No: [id number] : 1945 Primary Insurance: [employer] Anticipated DC Date: 08-14-2018 Planned Disposition: Home with Home Health External Planned Provider: [email or web address] DCP follow-up note: CM REVIEWED CHART, PT DISCHARGED HOME OVER WEEKEND WITH [facility]. CM CALLED [facility], , SPOKE TO HOMER JOYCE WHO INFORMED CM THAT PT IS 90% SERVICE CONNECTED AND THEY WILL HAVE TO REVIEW HOSPITAL RECORDS, GET PT AN APPOINTMENT AND HAVE PT COME TO [facility] FOR EVALUATION BEFORE MAKING ANY HOME ANKIT OR HOME CARE DECISIONS. HOMER JOYCE REPORTS THAT PT BEST KEEP THE HOME HEALTH ARRANGED IT DOES TAKE SOME TIME FOR VA SERVICES TO BE ARRANGED. CM FAXED HOSPITAL STAY AND DISCHARGE INFORMATION TO PATIENT CARE TEAM #3 AT [facility], FOR POSSIBLE VA FOLLOW UP. ABEL Chiang DCP- Discharge Planning Updated by [id number]: Sol Benavidez on 08/14/18 1:[address] Patient Name: CHOLO BARRAZA Admission Status: ER Accout number: [id number] Admission Date: 08-13-2018 : 1945 Admission Diagnosis:CEREBRAL INFARCTION, UNSPECIFIED Attending: WENDY BOSE Current LOS: 1 Anticipated DC Date: Planned Disposition: Home with Home Health Primary Insurance: [facility] Discharge Planning Comments: SPOKE TO PT AND ABOUT HH AND THAT [facility] COULD TAKE WEEKS TO GET IN. PT DECIDED TO GO WITH [facility]. LASHAY SIGNED AT 1350. PT HAS WALKER AT HOME AND DENIES ANY OTHER NEEDS. PT STATES HOME IS A SAFE DC PLAN. CM FAXED AND CALLED HH WITH NEW ADMIT INFORMATION. IMM SIGNED AT 1350 Marketing Planning Manager: Sol Benavidez DCP- Discharge Planning Updated by [email or web address]: Jarad Ceron on 08/13/18 4:[address] Patient Name: CHOLO BARRAZA Encounter No: [id number] : 1945 Primary Insurance: [facility] Anticipated DC Date: Planned Disposition: Home with Home Health External Planned Provider: [facility] DCP follow-up note: CM RECEIVED ORDER FOR INPATIENT REHAB PRESCREENING. CM MET WITH PT AND SPOUSE IN ROOM. PT PROVIDED PERMISSION TO DISCUSS CARE AND DISCHARGE PLANNING WITH SPOUSE. CM DISCUSSED REHAB OPTIONS, PROVIDERS AND LOCATIONS. PT DOES NOT WANT TO STAY FOR REHAB AT [facility]. PT DOES NOT WANT TRANSFERRED TO [facility]AB OR [facility]. PT REQUESTS FOR [facility] HOME HEALTH AND [facility] PERSONAL CARE BE ARRANGED FOR HIM TO DISCHARGE HOME. CM EXPLAINED PROCESS AND INFORMED PT AND SPOUSE THE REQUESTED ARRANGEMENT WILL TAKE AND UNDETERMINED AMOUNT OF TIME AND THE [facility] MAY OR MAY NOT AGREE WITH THE NEEDS AND MAY OR MAY NOT ARRANGE THE SERVICES. CM FURTHER EXPLAINED THAT CM MAY REQUEST THE SERVICES FROM THE [facility], BUT THAT CM DOES NOT HAVE CONTROL OVER WHAT THE [facility] WILL OR WILL NOT PROVIDE. PT AND SPOUSE REPORT UNDERSTANDING. PT AND SPOUSE EXPECT THAT HE WILL REMAIN IN THE HOSPITAL UNTIL THE [facility] MAKES ARRANGEMENTS FOR PT'S DISCHARGE HOME. CM TO CONTACT [facility] AND REQUEST HOME HEALTH AND HOME PERSONAL CARE FROM THE [facility] FOR PT TO DISCHARGE HOME. Jarad Ceron, CASE MANAGEMENT DCP- Discharge Planning Updated by [id number]: Jarad Ceron on 08/13/18 8:[address] Patient Name: CHOLO BARRAZA Admission Status: ER Accout number: [id number] Admission Date: 08-13-2018 : 1945 Admission Diagnosis: Attending: WENDY BOSE Current LOS: 1 Anticipated DC Date: Planned Disposition: [facility] facility Primary Insurance: [employer] PLANNED EXTERNAL PROVIDER: [facility] Discharge Planning Comments: CM MET WITH PT IN ROOM TO DISCUSS DISCHARGE PLANNING AND NEEDS. PT REPORTS LIVING AT HOME INDEPENDENTLY WITH SPOUSE. PT HAS WALKER WITH SEAT FROM THE [facility]. PT HAS NO OUTSIDE SERVICES ASSISTING IN THE HOME. CM DISCUSSED AVAILABILITY OF HOME HEALTH, REHAB SERVICES AND MEDICAL EQUIPMENT. PT STATES IF HE NEEDS REHAB, HE WANTS REHAB AT [facility] HE ALREADY GOES THERE. PT PLANS TO DISCHARGE HOME IF NOT TRANSFERRED TO THE [facility] IN [place]. PT STATES THE NURSE IN THE ER WAS SUPPOSED TO CALL LAST NIGHT. PT REPORTS HIS WILL PICK HIM UP FOR DISCHARGE HOME. PT DOES WANT TO TRANSFER TO THE [facility] HOSP[facility]. CM CALLED [facility], , SPOKE TO [facility] EXPEDITOR MELODY WHO INFORMED CM THAT NO PRIOR CALL HAD BEEN RECEIVED REGARDING PT'S ADMISSION TO THE HOSPITAL. CM PLACED PT ON THE [facility] TRANSFER LIST. PT IS ON THE [facility] TRANSFER LIST. PT STATES THAT IF HE COMPLETES TREATMENT HERE WITHOUT A PR BED COMING AVAILABLE, PT WANTS TO DISCHARGE HOME WITH SPOUSE AND OUTPATIENT REHAB AT [facility]. CM TO CONTINUE TO FOLLOW AND ASSIST NEEDED. Marketing Planning Manager: Jarad Ceron DCPIA - Discharge Planning Initial Assessment Updated by [email or web address]: Jarad Ceron on 08/13/18 8:54 am * Is the patient Alert and Oriented? Yes * How many steps to enter\exit or inside your home? * PCP DR. OBRIEN * [facility]acy [facility] * Preadmission Environment Home with Family * ADLs Independent * Equipment Rolling Walker * Other Equipment WALKER WITH SEAT PROVIDER- [facility] * List name and contact numbers for known caregivers / representatives who currently or will assist patient after discharge: CHER BARRAZA, SPOUSE, * Verbal permission to speak to the caregivers and representatives has been obtained from the patient. N/A * Community resources currently utilized None * Please name any agencies selected above. NONE * Additional services required to return to the preadmission environment? No * Can the patient safely return to the preadmission environment? Yes * Has this patient been hospitalized within the prior 30 days at any hospital? No External Providers External Provider: OTHER-OTHER Next Contact Date: 08/16/2018 Service Request Date: Service Type: Resolution: Reviewer: Comments: Last DP export: 08/16/18 7:02 a Patient Name: CHOLO BARRAZA Page 25123 at 1657 All edits/amendments must be made on the electronic document DICTATION DATE: 08/16/181655 MANAGER OF DISTRIBUTION: LORENZA 08/16/181655 RPT#: [id number] DC DATE:08/14/18 STATUS: DIS IN [facility] [address] [place] [address] END OF REPORT
--- NOTE | 2018-08-17 07:42 | MORECARE ---
CASE MANAGEMENT DISCHARGE SUMMARY PATIENT: CHOLO BARRAZA UNIT: [id number] ADM DATE: 08/13/18 AGE: 73 : 47 SEX: M ROOM/BED: D.2103 AUTHOR: DIAZ ZAVALA PHYSICIAN: REFERRING PHYSICIAN: WENDY BOSE MD DATE OF SERVICE: 08/17/18 Discharge Plan Patient Name: CHOLO BARRAZA Facility: [facility]:[place] : 1945 Planned Disposition: Home with Home Health Anticipated Discharge Date: 08/14/18 Discharge Date: 08/14/2018 Expected LOS: 1 Initial Reviewer: [id number] Initial Review Date: 08/12/2018 Generated: 08/17/18 8:42 am Comments DCP- Discharge Planning Updated by [email or web address]: Jarad Ceron on 08/16/18 3:[address] Patient Name: CHOLO BARRAZA Encounter No: [id number] : 1945 Primary Insurance: [employer] Anticipated DC Date: 08-14-2018 Planned Disposition: Home with Home Health External Planned Provider: [employer] [facility] DCP follow-up note: CM REVIEWED CHART, PT DISCHARGED HOME OVER WEEKEND WITH [employer] [facility]. CM CALLED [facility], , SPOKE TO HOMER JOYCE WHO INFORMED CM THAT PT IS 90% SERVICE CONNECTED AND THEY WILL HAVE TO REVIEW HOSPITAL RECORDS, GET PT AN APPOINTMENT AND HAVE PT COME TO [facility] FOR EVALUATION BEFORE MAKING ANY HOME ANKIT OR HOME CARE DECISIONS. HOMER JOYCE REPORTS THAT PT BEST KEEP THE HOME HEALTH ARRANGED IT DOES TAKE SOME TIME FOR VA SERVICES TO BE ARRANGED. CM FAXED HOSPITAL STAY AND DISCHARGE INFORMATION TO PATIENT CARE TEAM #3 AT [facility], FOR POSSIBLE VA FOLLOW UP. ABEL Chiang DCP- Discharge Planning Updated by [id number]: Sol Benavidez on 08/14/18 1:[address] Patient Name: CHOLO BARRAZA Admission Status: ER Accout number: [id number] Admission Date: 08-13-2018 : 1945 Admission Diagnosis:CEREBRAL INFARCTION, UNSPECIFIED Attending: WENDY BOSE Current LOS: 1 Anticipated DC Date: Planned Disposition: Home with Home Health Primary Insurance: [facility] [place] [employer] Discharge Planning Comments: SPOKE TO PT AND ABOUT HH AND THAT VA COULD TAKE WEEKS TO GET IN. PT DECIDED TO GO WITH [facility]. LASHAY SIGNED AT 1350. PT HAS WALKER AT HOME AND DENIES ANY OTHER NEEDS. PT STATES HOME IS A SAFE DC PLAN. CM FAXED AND CALLED HH WITH NEW ADMIT INFORMATION. IMM SIGNED AT 1350 Valve Inserter: Sol Benavidez DCP- Discharge Planning Updated by [id number]: Jarad Ceron on 08/13/18 4:[address] Patient Name: CHOLO BARRAZA Encounter No: [id number] : 1945 Primary Insurance: [facility] [place] [employer] Anticipated DC Date: Planned Disposition: Home with Home Health External Planned Provider: [facility] DCP follow-up note: CM RECEIVED ORDER FOR INPATIENT REHAB PRESCREENING. CM MET WITH PT AND SPOUSE IN ROOM. PT PROVIDED PERMISSION TO DISCUSS CARE AND DISCHARGE PLANNING WITH SPOUSE. CM DISCUSSED REHAB OPTIONS, PROVIDERS AND LOCATIONS. PT DOES NOT WANT TO STAY FOR REHAB AT [facility]. PT DOES NOT WANT TRANSFERRED TO [facility] OR S[facility]IOR CARE REHAB. PT REQUESTS FOR [facility] AND [facility] BE ARRANGED FOR HIM TO DISCHARGE HOME. CM EXPLAINED PROCESS AND INFORMED PT AND SPOUSE THE REQUESTED ARRANGEMENT WILL TAKE AND UNDETERMINED AMOUNT OF TIME AND THE [facility] MAY OR MAY NOT AGREE WITH THE NEEDS AND MAY OR MAY NOT ARRANGE THE SERVICES. CM FURTHER EXPLAINED THAT CM MAY REQUEST THE SERVICES FROM THE [facility], BUT THAT CM DOES NOT HAVE CONTROL OVER WHAT THE [facility] WILL OR WILL NOT PROVIDE. PT AND SPOUSE REPORT UNDERSTANDING. PT AND SPOUSE EXPECT THAT HE WILL REMAIN IN THE HOSPITAL UNTIL THE [place] MAKES ARRANGEMENTS FOR PT'S DISCHARGE HOME. CM TO CONTACT [facility] AND REQUEST HOME HEALTH AND HOME PERSONAL CARE FROM THE [place] FOR PT TO DISCHARGE HOME. Jarad Ceron, CASE MANAGEMENT DCP- Discharge Planning Updated by [id number]: Jarad Ceron on 08/13/18 8:[address] Patient Name: CHOLO BARRAZA Admission Status: ER Accout number: [id number] Admission Date: 08-13-2018 : 1945 Admission Diagnosis: Attending: WENDY BOSE Current LOS: 1 Anticipated DC Date: Planned Disposition: [place] facility Primary Insurance: [employer] PLANNED EXTERNAL PROVIDER: [facility] Discharge Planning Comments: CM MET WITH PT IN ROOM TO DISCUSS DISCHARGE PLANNING AND NEEDS. PT REPORTS LIVING AT HOME INDEPENDENTLY WITH SPOUSE. PT HAS WALKER WITH SEAT FROM THE [facility]. PT HAS NO OUTSIDE SERVICES ASSISTING IN THE HOME. CM DISCUSSED AVAILABILITY OF HOME HEALTH, REHAB SERVICES AND MEDICAL EQUIPMENT. PT STATES IF HE NEEDS REHAB, HE WANTS REHAB AT [facility] HE ALREADY GOES THERE. PT PLANS TO DISCHARGE HOME IF NOT TRANSFERRED TO THE [facility] [place]. PT STATES THE NURSE IN THE ER WAS SUPPOSED TO CALL LAST NIGHT. PT REPORTS HIS WILL PICK HIM UP FOR DISCHARGE HOME. PT DOES WANT TO TRANSFER TO THE [facility]. CM CALLED [facility], , SPOKE TO [place] EXPEDITOR MELODY WHO INFORMED CM THAT NO PRIOR CALL HAD BEEN RECEIVED REGARDING PT'S ADMISSION TO THE HOSPITAL. CM PLACED PT ON THE [place] TRANSFER LIST. PT IS ON THE [place] TRANSFER LIST. PT STATES THAT IF HE COMPLETES TREATMENT HERE WITHOUT A [place] BED COMING AVAILABLE, PT WANTS TO DISCHARGE HOME WITH SPOUSE AND OUTPATIENT REHAB AT [facility]. CM TO CONTINUE TO FOLLOW AND ASSIST NEEDED. Valve Inserter: Jarad Ceron DCPIA - Discharge Planning Initial Assessment Updated by [id number]: Jarad Ceron on 08/13/18 8:54 am * Is the patient Alert and Oriented? Yes * How many steps to enter\exit or inside your home? * PCP DR. OBRIEN * Pharmacy [facility] * Preadmission Environment Home with Family * ADLs Independent * Equipment Rolling Walker * Other Equipment WALKER WITH SEAT PROVIDER- [facility] * List name and contact numbers for known caregivers / representatives who currently or will assist patient after discharge: CHER BARRAZA, SPOUSE, * Verbal permission to speak to the caregivers and representatives has been obtained from the patient. N/A * Community resources currently utilized None * Please name any agencies selected above. NONE * Additional services required to return to the preadmission environment? No * Can the patient safely return to the preadmission environment? Yes * Has this patient been hospitalized within the prior 30 days at any hospital? No Last DP export: 08/16/18 3:56 p Patient Name: CHOLO BARRAZA Page [id number] at 0742 All edits/amendments must be made on the electronic document DICTATION DATE: 08/17/18740 FUR IRONER: LORENZA 08/17/1841 RPT#: [id number] DC DATE:08/14/18 STATUS: DIS IN [facility] [address] [place] [address] END OF REPORT
== END 2018-08-14 16:04 | disposition home health service (06) | DRG 64 ==
LOC: D.ER 10:51 → OBSVTIME 13:49 → D.M2 13:49
PROVIDERS: Emergency Medicine; ADMIT Internal Medicine Nephrology; ATTEND Internal Medicine Nephrology
DX: I63.9 Cerebral infarction, unspecified (principal); G93.6 Cerebral edema; G81.91 Hemiplegia, unspecified affecting right dominant side; N17.9 Acute kidney failure, unspecified; I25.10 Atherosclerotic heart disease of native coronary artery without angina pectoris; I10 Essential (primary) hypertension; E11.9 Type 2 diabetes mellitus without complications; I48.91 Unspecified atrial fibrillation; Z79.01 Long term (current) use of anticoagulants; K21.9 Gastro-esophageal reflux disease without esophagitis